=== PATIENT | male | born 1970 | race Caucasian/White ===

== ENCOUNTER 2023-05-13 17:56 | Inpatient (IN) | payer BC ==
[~2023-05-13] VITALS: Ht 182.9 cm; Wt 72.6 kg
[~2023-05-13 17:56] MED LIST: CRESTOR5 MG PO; LISINOPRIL10 MG PO; LOPRESSOR50 MG PO; METFORMIN HCL500 MG PO; MORPHINE PATCH TD; NORCO 10-325 T1 EACH PO; PANTOPRAZOLE SO40 MG PO; PLAVIX75 MG PO
[2023-05-13] MEDS: SODIUM CHLORIDE 0.9% 250ML IRRIG IR SCH ×2 (18:30→22:30)
[2023-05-13] MEDS: SODIUM CHLORIDE 0.9% 1000ML 1,000 ML IV SCH (18:47)
[2023-05-13 18:58] VITALS: BP 145/76; PULSE 50; RESP 18; TEMP 97.7; O2SAT 99
[2023-05-13] MEDS ORDERED: Morphine 4mg INJECTION 4 MG/ML INJ IV PRN (19:00)
[2023-05-13 20:01] VITALS: BP 136/77; PULSE 56; RESP 16; TEMP 97.7; O2SAT 99
[2023-05-13] MEDS ORDERED: ATORVASTATIN CA20 MG PO (20:23)
[2023-05-13] MEDS ORDERED: AMBIEN10 MG PO (20:23)
[2023-05-13] MEDS ORDERED: OMEPRAZOLE20 M1 PO (20:23)
[2023-05-13] MEDS ORDERED: ULTRAM 50MG50 MG PO (20:23)
[2023-05-13] MEDS ORDERED: EFFIENT10 MG PO (20:23)
[2023-05-13 20:27] VITALS: BP 136/77; PULSE 56; RESP 16; TEMP 97.7; O2SAT 99
[2023-05-13 21:00] VITALS: BP 136/77; PULSE 56; RESP 16; TEMP 97.7; O2SAT 99
[2023-05-13 21:24] VITALS: BP 136/77; PULSE 56; RESP 16; TEMP 97.7; O2SAT 99
[2023-05-13] MEDS ORDERED: DEXTROSE 50% SYRINGE 50 ML IV PRN (23:15)
[2023-05-13] MEDS: HYDROMORPHONE 1MG/1ML INJ IV PRN (23:24)
[2023-05-14] VITALS (7 sets, daily range): BP systolic 126–154; BP diastolic 79–91; PULSE 51–73; RESP 17–21; TEMP 97.7–98.6; O2SAT 97–100
[2023-05-14] MEDS: SODIUM CHLORIDE 0.9% 250ML IRRIG IR SCH ×6 (01:59→22:30)
[2023-05-14 05:55] LABS: BASOPHILS # (AUTO) 0.1 (0.0-0.1); BASOPHILS % 0.8 % (0.0-1.0); EOSINOPHILS # (AUTO) 0.4 (0.0-0.4); EOSINOPHILS % 4.7 % (0.0-6.0); HEMATOCRIT 44.7 % (38.2-49.6); HEMOGLOBIN 15.6 g/dL (14.0-18.0); LYMPHOCYTES # (AUTO) 1.7 (1.0-3.2); LYMPHOCYTES % 19.1 % (18.0-39.1); MEAN CORPUSCULAR HEMOGLOBIN 31.1 pg (28-32); MEAN CORPUSCULAR HGB CONC 34.9 g/dL (31-35); MONOCYTES # (AUTO) 0.9 (0.2-0.8); MONOCYTES % 9.6 % (4.4-11.3); NEUTROPHILS # (AUTO) 5.9 (2.1-6.9); NEUTROPHILS % 64.9 % (38.7-80.0); PLATELET COUNT 180 x10e3/uL (140-360); RED BLOOD COUNT 5.02 x10e6/uL (4.3-5.7); RED CELL DISTRIBUTION WIDTH 13.8 % (11.7-14.4)
[2023-05-14 06:22] LABS: ANION GAP 13.6 mmol/L (8-16); CREATININE, SERUM 1.91 mg/dL (0.72-1.25); POTASSIUM 4.6 mmol/L (3.5-5.1)
[2023-05-14 06:37] LABS: CHOL/HDL RATIO 6.5 (3.9-4.7)
[2023-05-14 06:42] LABS: MAGNESIUM 1.5 MG/DL (1.3-2.1); PHOSPHORUS 2.8 MG/DL (2.3-4.7)
[2023-05-14] MEDS: INSULIN REGULAR, HUMAN 100 UNIT/1 ML SQ SCH ×4 (07:30→20:34)
[2023-05-14] MEDS: SODIUM CHLORIDE 0.9% 1000ML 1,000 ML IV SCH ×3 (08:45→16:58)
[2023-05-14] MEDS: HYDROMORPHONE 1MG/1ML INJ IV PRN ×4 (08:53→21:33)
[2023-05-14] MEDS: FAMOTIDINE 20 MG/2 ML VIAL IV SCH ×2 (08:53→16:59)
[2023-05-14] MEDS: CARVEDILOL 12.5 MG TAB PO SCH (16:59)
[2023-05-14] MEDS: BISACODYL 10 MG SUPP PR SCH (20:25)
[2023-05-14] MEDS: ATORVASTATIN 40 MG TAB PO SCH (20:25)
[2023-05-15] VITALS (8 sets, daily range): BP systolic 112–160; BP diastolic 64–87; PULSE 74–90; RESP 14–18; TEMP 97.6–98.3; O2SAT 96–100
[2023-05-15] MEDS: SODIUM CHLORIDE 0.9% 250ML IRRIG IR SCH ×5 (02:30→18:03)
[2023-05-15] MEDS: SODIUM CHLORIDE 0.9% 1000ML 1,000 ML IV SCH ×3 (02:53→16:50)
[2023-05-15] MEDS: HYDROMORPHONE 1MG/1ML INJ IV PRN ×4 (06:21→21:25)
[2023-05-15] MEDS: INSULIN REGULAR, HUMAN 100 UNIT/1 ML SQ SCH ×4 (07:30→21:00)
[2023-05-15] MEDS: CARVEDILOL 12.5 MG TAB PO SCH ×2 (08:56→15:57)
[2023-05-15] MEDS: EZETIMIBE 10 MG TAB PO SCH (08:57)
[2023-05-15] MEDS: FAMOTIDINE 20 MG/2 ML VIAL IV SCH ×2 (09:12→16:50)
[2023-05-15] MEDS: BISACODYL 10 MG SUPP PR SCH (09:12)
[2023-05-15 09:16] LABS: MAGNESIUM 1.4 MG/DL (1.3-2.1)
[2023-05-15 10:59] LABS: PHOSPHORUS 2.8 MG/DL (2.3-4.7)
[2023-05-15 11:10] LABS: ANION GAP 15.9 mmol/L (8-16); CALCIUM 8.5 mg/dL (8.4-10.2); CREATININE, SERUM 1.8 mg/dL (0.72-1.25); POTASSIUM 4.9 mmol/L (3.5-5.1)
[2023-05-15] MEDS: ATORVASTATIN 40 MG TAB PO SCH (21:25)
[2023-05-16 00:22] VITALS: BP 141/88; PULSE 65; RESP 18; TEMP 96; O2SAT 98
[2023-05-16] MEDS: HYDROMORPHONE 1MG/1ML INJ IV PRN ×2 (01:59→08:01)
[2023-05-16 04:50] VITALS: BP 118/67; PULSE 54; RESP 18; TEMP 97.7; O2SAT 97
[2023-05-16] MEDS: SODIUM CHLORIDE 0.9% 1000ML 1,000 ML IV SCH ×2 (06:03→14:15)
[2023-05-16 08:00] VITALS: BP 118/67; PULSE 54; RESP 18; TEMP 97.7; O2SAT 97
[2023-05-16] MEDS: INSULIN REGULAR, HUMAN 100 UNIT/1 ML SQ SCH ×3 (08:00→14:58)
[2023-05-16 08:19] VITALS: BP 141/89; PULSE 61; RESP 18; TEMP 97.7; O2SAT 98
[2023-05-16] MEDS: FAMOTIDINE 20 MG/2 ML VIAL IV SCH ×2 (09:01→16:07)
[2023-05-16] MEDS: CARVEDILOL 12.5 MG TAB PO SCH ×2 (09:02→16:08)
[2023-05-16] MEDS: EZETIMIBE 10 MG TAB PO SCH (09:02)
[2023-05-16 10:14] LABS: BASOPHILS # (AUTO) 0.1 (0.0-0.1); BASOPHILS % 0.7 % (0.0-1.0); EOSINOPHILS # (AUTO) 0.3 (0.0-0.4); EOSINOPHILS % 3.9 % (0.0-6.0); HEMATOCRIT 38.8 % (38.2-49.6); HEMOGLOBIN 13.4 g/dL (14.0-18.0); LYMPHOCYTES # (AUTO) 1.2 (1.0-3.2); LYMPHOCYTES % 17.8 % (18.0-39.1); MEAN CORPUSCULAR HEMOGLOBIN 31.3 pg (28-32); MEAN CORPUSCULAR HGB CONC 34.5 g/dL (31-35); MEAN CORPUSCULAR VOLUME 90.7 fL (81-99); MONOCYTES # (AUTO) 0.7 (0.2-0.8); NEUTROPHILS # (AUTO) 4.4 (2.1-6.9); NEUTROPHILS % 66.2 % (38.7-80.0); PLATELET COUNT 176 x10e3/uL (140-360); RED BLOOD COUNT 4.28 x10e6/uL (4.3-5.7)
[2023-05-16 10:33] LABS: ANION GAP 9.5 mmol/L (8-16); CALCIUM 8.1 mg/dL (8.4-10.2); CREATININE, SERUM 1.62 mg/dL (0.72-1.25); MAGNESIUM 1.4 MG/DL (1.3-2.1); PHOSPHORUS 1.7 MG/DL (2.3-4.7); POTASSIUM 4.5 mmol/L (3.5-5.1)
[2023-05-16 11:54] VITALS: BP 135/86; PULSE 61; RESP 14; TEMP 98; O2SAT 99
[2023-05-16 15:46] VITALS: BP 142/89; PULSE 61; RESP 16; TEMP 98.5; O2SAT 100
[2023-05-16] MEDS ORDERED: COREG12.5 MG PO (17:01)
[2023-05-16] MEDS ORDERED: SENOKOT8.6 MG PO (17:01)
[2023-05-16] MEDS ORDERED: METRONIDAZOLE500 MG PO (17:01)
[2023-05-16] MEDS ORDERED: ZETIA10 MG PO (17:01)
[2023-05-16] MEDS ORDERED: DOCUSATE SODIU100 MG PO (17:01)
== END 2023-05-16 17:40 | disposition home or self-care (01) | DRG 390 ==
LOC: MED/SURG2 17:56
PROVIDERS: ADMIT Internal Medicine; ATTEND Internal Medicine
DX: K56.609 Unspecified intestinal obstruction, unspecified as to partial versus complete obstruction (principal); I25.10 Atherosclerotic heart disease of native coronary artery without angina pectoris; F17.200 Nicotine dependence, unspecified, uncomplicated; K21.9 Gastro-esophageal reflux disease without esophagitis; E11.65 Type 2 diabetes mellitus with hyperglycemia; E78.1 Pure hyperglyceridemia; E78.5 Hyperlipidemia, unspecified; I12.9 Hypertensive chronic kidney disease with stage 1 through stage 4 chronic kidney disease, or unspecified chronic kidney disease; E11.22 Type 2 diabetes mellitus with diabetic chronic kidney disease; N18.30 Chronic kidney disease, stage 3 unspecified; Z95.1 Presence of aortocoronary bypass graft; Z95.5 Presence of coronary angioplasty implant and graft; Z79.4 Long term (current) use of insulin; Z79.02 Long term (current) use of antithrombotics/antiplatelets; Z79.82 Long term (current) use of aspirin; Z20.822 Contact with and (suspected) exposure to COVID-19
CPT/HCPCS: 36415; 74018; 74022; 80048; 80061; 82948; 83036; 83735; 84100; 85025; 93005; 93306; J1170; J2270; J2543; J7030